=== PATIENT | female | born 1955 | race Caucasian/White ===

== ENCOUNTER 2016-10-28 15:29 | Emergency (ER) | payer MEDICAID ==
[~2016-10-28] VITALS: Ht 152.4 cm; Wt 47.2 kg
[2016-10-28 16:28] LABS: microscopic required? YES; urine erythrocyte 1+ (NEGATIVE)
[2016-10-28 17:05] LABS: BASOPHIL % 0.6 % (0-2); PLATELET COUNT 242 x10^3mcL (130-400)
[2016-10-28 17:30] LABS: CALCIUM 9.5 mg/dL (8.5-10.1); CREATININE SERUM 1.1 mg/dL (0.6-1.0); POTASSIUM SERUM 4.6 mmol/L (3.5-5.1)
[2016-10-28 17:44] LABS: ALBUMIN 3.8 g/dL (3.4-5.0); BILIRUBIN TOTAL 0.52 mg/dL (0.20-1.00); TOTAL PROTEIN, SERUM 7.6 g/dL (6.4-8.2)
[2016-10-28 18:11] VITALS: BP 99/58
== END 2016-10-28 18:11 | disposition home or self-care (01) ==
LOC: ED 15:29
PROVIDERS: Emergency Medicine
DX: R10.30 Lower abdominal pain, unspecified (principal); M54.9 Dorsalgia, unspecified; R35.0 Frequency of micturition; R39.15 Urgency of urination; F17.200 Nicotine dependence, unspecified, uncomplicated; R03.0 Elevated blood-pressure reading, without diagnosis of hypertension; Z98.51 Tubal ligation status
CPT/HCPCS: 36415

== ENCOUNTER 2018-05-28 16:03 | Emergency (ER) | payer SELFPAY ==
[~2018-05-28] VITALS: Ht 149.9 cm; Wt 49.0 kg
[2018-05-28 16:27] VITALS: BP 133/72; Ht 149.9 cm; Wt 49.0 kg
== END 2018-05-28 17:25 | disposition left against medical advice (07) ==
LOC: ED 16:03
DX: Z53.21 Procedure and treatment not carried out due to patient leaving prior to being seen by health care provider (principal)